=== PATIENT | female | born 1980 | race Caucasian/White ===

== ENCOUNTER 2021-02-14 09:07 | Emergency (ER) | payer MEDICAID, OTHER ==
[~2021-02-14] VITALS: Ht 170.2 cm; Wt 82.1 kg
--- NOTE | 2021-02-14 09:18 | NUR ---
Pt seen and examined by Dr Laird.
--- NOTE | 2021-02-14 09:25 | NUR ---
Pt is awake a/o x4, talking on the phone w/ family/friend to be picked up from hospital. Able to walk w/ steady gait.
[2021-02-14] MEDS ORDERED: NALOXONE HCL 0.4 MG/ML AMPUL ONE (09:27)
[2021-02-14] MEDS ORDERED: NALOXONE HCL 0.4 MG/ML AMPUL IV ONE (09:45)
--- NOTE | 2021-02-14 09:50 | NUR ---
IV removed. Catheter intact and site benign. Pressure and 4x4 gauze applied to site. No bleeding noted.
--- NOTE | 2021-02-14 09:54 | NUR ---
Patient does not wish to proceed with medical care recommended by (Johanna). Patient given information related to possible complications, up to and including , which could occur as a result of leaving the hospital at this time. Patient verbalizes understanding of risks involved due to leaving against medical advice. Patient has signed AMA form.
[2021-02-14 09:55] VITALS: BP 125/77
== END 2021-02-14 09:56 | disposition left against medical advice (07) ==
LOC: ER 09:07
DX: R41.82 Altered mental status, unspecified (principal); Z53.29 Procedure and treatment not carried out because of patient's decision for other reasons; T42.4X1A Poisoning by benzodiazepines, accidental (unintentional), initial encounter; T40.1X1A Poisoning by heroin, accidental (unintentional), initial encounter; G92 Toxic encephalopathy; Y92.89 Other specified places as the place of occurrence of the external cause
CPT/HCPCS: 96374; 99284; J2310; A4663